=== PATIENT | male | born 1995 | race Caucasian/White ===

== ENCOUNTER 2020-06-18 05:53 | Emergency (ER) | payer SELFPAY ==
[~2020-06-18] VITALS: Ht 185.4 cm; Wt 95.3 kg
[2020-06-18 06:02] VITALS: BP 143/45
--- NOTE | 2020-06-18 06:04 | NUR ---
PT AAOX3. BIBRA C/O "FRIEND SAW HIM HAVE A SEIZURE AND CALLED 911." PT AMBULATORY PALCED IN BED 10 ON MONITOR AND PULSE OX. VSS. NO ACUTE DISTRESS NOTED. PT CONTINIOUSLY SHAKING AND STATED HE DRANK 1.75L OF VODKA LAST NIGHT. AWAITING MD FOR EVAL.
[2020-06-18] MEDS ORDERED: LORAZEPAM 1 MG TABLET PO ONE (07:00)
[2020-06-18] MEDS ORDERED: LORAZEPAM 1 MG TABLET ONE (07:02)
== END 2020-06-18 07:13 | disposition home or self-care (01) ==
LOC: ER 05:56
DX: F10.239 Alcohol dependence with withdrawal, unspecified (principal); F17.200 Nicotine dependence, unspecified, uncomplicated; Y90.9 Presence of alcohol in blood, level not specified